=== PATIENT | male | born 1990 | race American Indian/Alaskan Native ===

== ENCOUNTER 2020-01-26 12:07 | Emergency (ER) | payer SELFPAY ==
[2020-01-26 12:14] VITALS: BP 101/55
--- NOTE | 2020-01-26 12:43 | Emergency Department Report ---
ED Extremity Problem HPI - General Chief complaint: Extremity Injury, Lower Stated complaint: SWOLLEN FOOT Time Seen by Provider: 01/26/20 12:31 Source: patient Mode of arrival: Ambulatory Limitations: No Limitations - History of Present Illness Initial comments: This is a 29-year-old male presents the ED complaining of right fifth toe and foot pain for the past couple of days. Patient states that he is noticed some swelling and redness in the area and pain to the right fifth toe. Patient states that pain is radiating to his foot and noted swelling. Patient denies any injury trauma or falls. MD Complaint: extremity pain, extremity swelling -: days(s) Location: right History of Same: No - Related Data Previous Rx's Medication Instructions Recorded Last Taken Type Cephalexin [Keflex] 750 mg PO BID #10 capsule 01/26/20 Unknown Rx Ibuprofen [Motrin] 800 mg PO Q8HR #30 tab 01/26/20 Unknown Rx Undecylenic Acid/Zn Undecyl 1 applic TP BID #1 oint...g. 01/26/20 Unknown Rx [Fungi-Nail Toe & Foot Ointment] Allergies Allergy/AdvReac Type Severity Reaction Status Date / Time No Known Allergies Allergy Unverified 01/26/20 12:11 ED Review of Systems ROS: Stated complaint: SWOLLEN FOOT Other details as noted in HPI Comment: All other systems reviewed and negative ED Past Medical Hx - Past Medical History Previous Medical History?: No - Surgical History Past Surgical History?: No - Social History Smoking Status: Current Every Day Smoker Substance Use Type: None - Medications Home Medications: Home Medications Medication Instructions Recorded Confirmed Last Taken Type Cephalexin [Keflex] 750 mg PO BID #10 capsule 01/26/20 Unknown Rx Ibuprofen [Motrin] 800 mg PO Q8HR #30 tab 01/26/20 Unknown Rx Undecylenic Acid/Zn Undecyl 1 applic TP BID #1 oint...g. 01/26/20 Unknown Rx [Fungi-Nail Toe & Foot Ointment] ED Physical Exam - General Limitations: No Limitations General appearance: alert, in no apparent distress - Head Head exam: Present: atraumatic, normocephalic - Eye Eye exam: Present: normal appearance - ENT ENT exam: Present: mucous membranes moist - Neck Neck exam: Present: normal inspection - Respiratory Respiratory exam: Present: normal lung sounds bilaterally. Absent: respiratory distress - Cardiovascular Cardiovascular Exam: Present: regular rate, normal rhythm. Absent: systolic murmur, diastolic murmur, rubs, gallop - GI/Abdominal GI/Abdominal exam: Present: soft, normal bowel sounds - Rectal Rectal exam: Present: deferred - Extremities Exam Extremities exam: Present: normal inspection, full ROM, tenderness (To palpation of the anterior aspect of the fifth toe. Swelling noted to the fourth and fifth toe. Mild erythematous. Infected lesion noted in between fourth and fifth toe), normal capillary refill - Back Exam Back exam: Present: normal inspection - Neurological Exam Neurological exam: Present: alert, oriented X3 - Psychiatric Psychiatric exam: Present: normal affect, normal mood - Skin Skin exam: Present: warm, dry, intact, normal color. Absent: rash ED Course Vital Signs 01/26/20 12:11 Temperature 98.0 F Pulse Rate 64 Respiratory 20 Rate Blood Pressure 101/55 O2 Sat by Pulse 100 Oximetry ED Medical Decision Making - Medical Decision Making This 29-year-old male presents with cellulitis of the fifth toe. Discussed with patient to follow-up with primary care physician after completion of antibiotics. Discussed no swelling or taking that until foot is healed. Vital signs are normal patient is in no acute distress. Patient understand instructions given. Critical care attestation.: If time is entered above; I have spent that time in minutes in the direct care of this critically ill patient, excluding procedure time. ED Disposition Clinical Impression: Toe infection, Cellulitis of toe of right foot Disposition: DC-01 TO HOME OR SELFCARE Is pt being admited?: No Does the pt Need Aspirin: No Condition: Stable Instructions: Paronychia (ED), Cellulitis (ED) Additional Instructions: Make sure to follow up with the primary care physician as discussed. Take all your medications as you've been prescribed. If you have any worsening symptoms or develop new symptoms please return to ED immediately. Prescriptions: Undecylenic Acid/Zn Undecyl [Fungi-Nail Toe & Foot Ointment] 1 applic TP BID #1 oint...g. Cephalexin [Keflex] 750 mg PO BID #10 capsule Ibuprofen [Motrin] 800 mg PO Q8HR #30 tab Referrals: PRIMARY CARE, [Primary Care Provider] - 3-5 Days [facility] [place] [Outside] - 3-5 Days [facility] [Outside] - 3-5 Days Forms: Work/School Release Form Time of Disposition: 12:49
== END 2020-01-26 13:15 | disposition home or self-care (01) ==
LOC: ED 12:07
DX: L03.031 Cellulitis of right toe (principal); L08.9 Local infection of the skin and subcutaneous tissue, unspecified; F17.200 Nicotine dependence, unspecified, uncomplicated; Z79.899 Other long term (current) drug therapy
CPT/HCPCS: 99282